=== PATIENT | male | born 1965 ===

== ENCOUNTER 2017-08-10 14:29 | Emergency (ER) | payer OTHER ==
[2017-08-10 14:46] VITALS: RESP 18; TEMP 98.5; O2SAT 99; BMI 34.2
[2017-08-10] MEDS ORDERED: Naproxen 550 mg Tab PO STA (15:20)
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
--- NOTE | 2017-08-10 15:56 | RAD ---
PROCEDURE: Left Knee Radiographs. HISTORY: Pain. COMPARISON: None. FINDINGS: BONES: Normal. No fracture. JOINTS: Narrowing of the medial joint compartment consistent with osteoarthritis. The lateral and patellofemoral compartments are preserved. No articular erosion. Subtle media subchondral sclerosis. JOINT EFFUSION: None. OTHER FINDINGS: None. IMPRESSION: Medial osteoarthritis.
[2017-08-10 16:45] VITALS: BP 143/83; PULSE 65
== END 2017-08-10 16:45 | disposition home or self-care (01) ==
LOC: ED 14:29
DX: S80.02XA Contusion of left knee, initial encounter (principal); V49.49XA Driver injured in collision with other motor vehicles in traffic accident, initial encounter; Y92.410 Unspecified street and highway as the place of occurrence of the external cause

== ENCOUNTER 2019-03-08 08:27 | Emergency (ER) | payer OTHER ==
[2019-03-08 08:27] VITALS: BMI 34.2
[2019-03-08 08:48] VITALS: RESP 16; TEMP 98.1; O2SAT 99
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
[2019-03-08 09:31] VITALS: BP 135/72; PULSE 85
== END 2019-03-08 09:30 | disposition home or self-care (01) ==
LOC: ED 08:27
DX: S89.92XA Unspecified injury of left lower leg, initial encounter (principal); S49.92XA Unspecified injury of left shoulder and upper arm, initial encounter; V49.9XXA Car occupant (driver) (passenger) injured in unspecified traffic accident, initial encounter; Y92.410 Unspecified street and highway as the place of occurrence of the external cause
CPT/HCPCS: 96372; 99283; J1885